=== PATIENT | male | born 1965 | race Caucasian/White ===

== ENCOUNTER → 2022-09-21 11:38 | Outpatient (CLI) | payer BC, SELFPAY ==
--- NOTE | 2022-09-21 11:40 | CA_ITS ---
APPROVED REPORT EXAM: Comprehensive 2D, Doppler, and color-flow Echocardiogram Senior Editor: Laxmi De La O CRT Ht: 6 ft 0 in Wt: 233lbs BSA: 2.27 BP: 132/96 mmHg Indications: Chest Pain, gerd, family hx, gerd 2D Dimensions LVOT 1.98 cm (M/F) 1.5-2.5 LA Volume 46.10 mL LA Volume Index 19.80 mL/m2 (M/F) 16-34 M-Mode Dimensions RVDd 3.24 cm (0.9-2.6) LA Diam 4.32 cm (1.9-4.0) LVDd 5.27 cm (3.5-5.7) Ao Diam 4.01 cm (2.0-3.7) LVDs 3.48 cm (3.5-5.7) IVSd 1.54 cm (0.6-1.1) PWd 0.91 cm (0.6-1.1) EF (Teich) 62.40% FS 34.00% EDV (Teich) 133.60 mL TAPSE 2.26 (<1.7) ESV (Teich) 50.20 mL LV Diastology E Decel Time 270.00 (160-240 msec) E/A Ratio 0.90 MED E' 7.30 (< 7 cm/sec) MED A' 15.20 cm/s E'/MED E' Ratio 9.22 (>14) LAT E' 7.40 (<10 cm/sec) LAT A' 12.80 cm/s E/LAT E' Ratio 9.09 (>14) Aortic Valve AO Peak GR. 10.70 mmHg Mitral Valve MV A Velocity 75.00 (40-130 cm/s) E/A Ratio 0.90 MV Decel. Time 270.00 (160-240 ms) Pulmonary Valve PV Peak Velocity 195.00 (50-150 cm/s) Tricuspid Valve TR P. Velocity 201.00 cm/s Left Ventricle Left atrium is mildly enlarged, left ventricle is normal size mild concentric left ventricular hypertrophy, estimated ejection fraction 55% with no regional wall motion abnormality, grade 1 diastolic dysfunction seen without tissue Doppler evidence of raise left atrial pressure. Right Ventricle Right atrium and right ventricle are normal size and contractility. Aortic Valve Aortic valve is minimally thickened and fibrosed there is no aortic stenosis or aortic insufficiency. Mitral Valve Mitral valve is grossly normal, there is trace mitral regurgitation. Tricuspid Valve Tricuspid valve grossly normal, there is trace tricuspid regurgitation, tricuspid regurgitation jet velocity is inadequate for calculation of the right ventricular systolic pressure. Pulmonic Valve Pulmonic valve is poorly visualized. Great Vessels Aortic root is normal size. Inferior vena cava is poorly visualized. Pericardium No significant pericardial effusion noted. Conclusion 1. Mildly enlarged left atrium, normal left ventricular size, mild concentric left ventricular hypertrophy, estimated ejection fraction 55% with no regional wall motion abnormality, grade 1 diastolic dysfunction seen without tissue Doppler evidence of raise left atrial pressure. 2. Trace mitral and tricuspid regurgitation. 3. No significant pericardial effusion. 4. Inferior vena cava is poorly visualized. Electronically signed by : Suresh Maza MD 09/22/2022 12:48:35
--- NOTE | 2022-09-21 11:43 | XR_ITS ---
FINAL REPORT CLINICAL HISTORY: chest pain x 2 weeks FINDINGS: Two views of the chest were obtained. The heart size and pulmonary vascularity are within normal limits. The mediastinum is normal. No acute pulmonary abnormality is identified. There is no pneumothorax. The bony thorax is intact. IMPRESSION: No active cardiopulmonary disease. Reviewed, Interpreted and Dictated by Reilly Garrett III, MD Transcribed by Tita Mraley Authenticated and [facility]
[2022-09-21 12:02] LABS: Microscopic, Urine URINE MICROSCOPIC (MICROSCOPIC)
[2022-09-21 12:37] LABS: Basophils # 0.1 K/mm3 (0-0.2); Basophils % 1.3 % (0.1-2.0); Eosinophils # 0.2 K/mm3 (0.0-0.4); Eosinophils % 3.5 % (0.1-12.0); Hematocrit 49.3 % (42.0-52.0); Hemoglobin 15.6 g/dL (14.1-18.0); Lymphocytes # 2.3 K/mm3 (0.7-4.5); Lymphocytes % 39.5 % (10-50); Mean Corpuscular HGB Conc 31.7 g/dL (31.8-35.4); Mean Corpuscular Hemoglobin 28.7 pg (27.0-31.2); Mean Corpuscular Volume 90.4 fl (80-94); Mean Platelet Volume 10.3 fl (7.4-10.4); Monocytes # 0.5 K/mm3 (0.1-1.0); Monocytes % 7.8 % (1.7-9.3); Neutrophils # 2.8 K/mm3 (1.8-7.8); Platelet Count 176 K/mm3 (142-424); Red Blood Count 5.45 M/mm3 (4.60-6.20); Red Cell Distribution Width 14.8 % (11.5-17.5); White Blood Count 5.8 K/mm3 (4.8-10.8)
[2022-09-21 12:49] LABS: Appearance,Urine CLEAR (Clear); Bilirubin,Urine Negative (Negative); Blood, Urine Negative (Negative); Color,Urine YELLOW (Yellow); Glucose,Urine (UA) Negative (Negative); Ketones,Urine Negative (Negative); Leukocyte Esterase,Urine Negative (Negative); Nitrate,Urine Negative (Negative); Protein,Urine Negative (Negative); Urobilinogen,Urine 0.2 EU/dl (0.2)
[2022-09-21 13:08] LABS: Alanine Aminotransferase 87 U/L (12-78); Albumin Level 4.5 g/dl (3.5-5.0); Alkaline Phosphatase 73 U/L (38-126); Anion Gap 11.1 mEq/L (5-15); Aspartate Amino Transferase 69 U/L (17-59); Bilirubin,Direct 0.2 mg/dl (0.0-0.4); Bilirubin,Indirect 0.8 mg/dL (0.0-0.9); Bilirubin,Unconjugated 0.8 mg/dL (0.0-1.1); Blood Urea Nitrogen 13 mg/dl (9-20); Calcium 8.8 mg/dl (8.4-10.2); Carbon Dioxide 27 mmol/L (22.0-30.0); Chloride 105 mmol/L (98-107); Chol/HDL Ratio 6.4 (1-3.5); Cholesterol 281 mg/dl (140-200); Estimated Glomerular Filt Rate 87 ml/min (>60); GFR (African American) 105 ML/MIN (>60); Glucose 116 mg/dl (74-100); HDL Cholesterol 44 mg/dl (40-60); Potassium 4.1 mmoL/L (3.5-5.1); Sodium 139 mmol/L (136-145); Total Protein,Serum 7.4 g/dl (6.3-8.2); Triglycerides 118 mg/dl (30-150); VLDL Cholesterol 24 mg/dL (0-40)
[2022-09-21 13:11] LABS: Bacteria,Urine Trace /lpf; Squamous Epithelial Cell,Urine Occasional #/hpf (0-5)
[2022-09-21 13:19] LABS: Direct LDL Cholesterol 203.19 mg/dL (100-129)
[2022-09-21 13:25] LABS: Free T4 (Free Thyroxine) 1.03 ng/dl (0.78-2.19)
[2022-09-21 13:27] LABS: 25-OH Vitamin D, Total 19.5 ng/mL (30-100)
[2022-09-21 13:38] LABS: Prostate Specific Ag Screen 3.1 ng/ml (0.0-4.0); Thyroid Stimulating Hormone 0.78 uIU/mL (0.465-4.68)
== END ==
PROVIDERS: PCP Physician Assistant; Visit Provider Internal Medicine
DX: R07.89 Other chest pain (principal); R49.9 Unspecified voice and resonance disorder; K21.9 Gastro-esophageal reflux disease without esophagitis; Z82.49 Family history of ischemic heart disease and other diseases of the circulatory system; R06.00 Dyspnea, unspecified; I11.9 Hypertensive heart disease without heart failure; I63.9 Cerebral infarction, unspecified; E11.9 Type 2 diabetes mellitus without complications; Z12.5 Encounter for screening for malignant neoplasm of prostate
CPT/HCPCS: 36415; 71046; 80048; 80061; 80076; 81001; 82306; 84439; 84443; 85025; 93306; G0103

== ENCOUNTER → 2022-09-29 11:31 | Outpatient (CLI) | payer BC, SELFPAY ==
--- NOTE | 2022-09-29 11:31 | NM_ITS ---
APPROVED REPORT Exam: Nuclear Stress Test Indication: HTN, FM HX, C.P., PALPITATIONS Patient Location: Outpatient Stress Tech: Azra Wise [place] Tech:OCTAVIANO aLtif RT (R)(N)(M) Ht: 6 ft 0 in Wt: 230 lbs Bra Size: 1.35 HR: 54 bpm BP: 141/78 mmHg BSA: 2.26 m2 TID: 1.35 History: HTN, FM HX, C.P., PALPITATIONS Procedure: Patient exercised on Floyd protocol 11:30 minutes and sec, resting heart rate 54 bpm, resting blood pressure 141/78 mmHg, with exercise maximum heart rate achived was 124 bpm which is 76 % of the maximum predicted heart rate and blood pressure was 182/88 mmHg. Test was stopped due to SOA, FATIGUE. Patient has good exercise capacity, achieved 12.8 METs of workload on treadmill, the blood pressure response to exercise was Adequate. Electrocardiogram Resting electrocardiogram shows sinus rhythm, with exercise there is less than 1.[address] segment depression noted from the baseline EKG. The EKG portion of the exercise Myoview was nondiagnostic as if she did not achieve the target heart rate. Cardiac Stress and Resting SPECT Images: Cardiac Stress and Resting SPECT images were obtained using technetium 99m Myoview 31.6 mCi stress and 10.64 mCi at rest. Gated SPECT analysis of segmental wall motion and calculation of the ejection fraction also done. Prone images were also obtained. Cardiac stress and resting SPECT images show uniform myocardial activity without segmental perfusion abnormality, computer derived ejection fraction 47% with no regional wall motion abnormality, right ventricle is normal size and contractility. Conclusion: 1. The EKG portion of the exercise Myoview was nondiagnostic as patient did not achieve the target heart rate, patient has good exercise capacity achieved 12.8 METs of workload on treadmill, the blood pressure response to exercise was adequate, patient complained of chest discomfort with exercise relieved with rest. 2. No scintigraphic evidence of reversible ischemia seen, computer derived ejection fraction 47% with no regional wall motion abnormality, right ventricle is normal size and contractility. 3. Equivocal myocardial perfusion imaging. Electronically signed by : Suresh Maza MD 10/01/2022 12:04:29
--- NOTE | 2022-09-29 14:26 | CA_ITS ---
APPROVED REPORT Exam: Exercise Treadmill Technologist: Azra Wise Ht: 6 ft 0 in Wt: 233 lbs BSA: 2.27 m2 HR: 54 bpm BP: 141/78 mmHg Indications: Chest pain Medical History Medications: Omeprazole,,,,, Asa,,,,, BisOPROLOL,,,,, OmeGA3,,,,, Stress Test Details Test: Floyd HR Resting HR: 59 bpm Max Heart Rate (APMHR): 163.429926 bpm Max HR Achieved: 124 bpm Target HR (85% APMHR): 138.866349 bpm % of APMHR: 76.07 Recovery HR: 83 bpm BP Resting BP: 141.0/78.0 mmHg Max BP: 184.0/82.0 mmHg Recovery BP: 134.0/89.0 mmHg ECG Resting ECG: Sinus bradycardia, short [place] interval Clinical Exercise duration: 11:30 min Highest Stage Achieved: Exercise capacity: 12.8 METs Stress ECG Conclusion Patient exercised 11:30 into stage 4 Floyd Protocol. Test stopped due to shortness of air, fatigue. Symptoms: Burning discomfort in mid chest and left axilla. Arrhythmias/Ectopy: None ST-T Changes: 0.5 - 1 mm of horizontal and slightly upsloping ST depression laterally and 0.5 mm inferiorly. Conclusion: Abnormal GXT with chest pain and equivocal EKG changes. Blunted heart rate response on Bisoprolol. Myoview images reported separately. Test Summary REST . . . . . . . Sitting REST . . . . . . . Standing REST 02:53 0.0 0.0 59 . 141/ 78 . . Stage 1 01:00 10.0 1.7 80 . . . . Stage 1 02:00 10.0 1.7 85 . . . . Stage 1 03:00 10.0 1.7 84 . 138/ 76 . . Stage 2 01:00 12.0 2.5 90 . . . . Stage 2 02:00 12.0 2.5 95 . . . . Stage 2 03:00 12.0 2.5 94 . 144/ 72 . . Stage 3 01:00 14.0 3.4 100 . . . . Stage 3 02:00 14.0 3.4 105 . 166/ 78 . . Stage 3 03:00 14.0 3.4 108 . 156/ 78 . . Stage 4 01:00 16.0 4.2 118 . . . . Stage 4 . . . . . . . Myoview Injected Stage 4 02:00 16.0 4.2 121 . . . . Stage 4 . . . . . . . Chest pain Stage 4 02:30 16.0 4.2 124 . . . Stop exercise at 11:30 RECOVERY 01:00 0.0 0.0 101 . . . . RECOVERY 02:00 0.0 0.0 87 . 182/ 88 . . RECOVERY 03:00 0.0 0.0 84 . 182/ 88 . . RECOVERY 04:00 0.0 0.0 80 . 184/ 82 . . RECOVERY 05:00 0.0 0.0 82 . 184/ 82 . . RECOVERY 06:00 0.0 0.0 79 . 184/ 82 . . RECOVERY 06:46 0.0 0.0 79 . 134/ 89 . . Electronically signed by : Suresh Maza MD 09/30/2022 06:52:47
== END ==
PROVIDERS: PCP Physician Assistant; Visit Provider Internal Medicine
DX: R07.89 Other chest pain (principal); K21.9 Gastro-esophageal reflux disease without esophagitis; R49.9 Unspecified voice and resonance disorder; Z82.49 Family history of ischemic heart disease and other diseases of the circulatory system
CPT/HCPCS: 78452; 93017; A9502

== ENCOUNTER → 2022-11-29 08:52 | Outpatient (CLI) | payer BC, SELFPAY ==
[2022-11-29 09:56] LABS: Alanine Aminotransferase 71 U/L (12-78); Albumin Level 4.5 g/dl (3.5-5.0); Alkaline Phosphatase 68 U/L (38-126); Aspartate Amino Transferase 81 U/L (17-59); Bilirubin,Direct 0.3 mg/dl (0.0-0.4); Bilirubin,Indirect 0.6 mg/dL (0.0-0.9); Bilirubin,Total 0.9 mg/dl (0.2-1.3); Bilirubin,Unconjugated 0.6 mg/dL (0.0-1.1); Chol/HDL Ratio 5.5 (1-3.5); Cholesterol 225 mg/dl (140-200); HDL Cholesterol 41 mg/dl (40-60); Total Protein,Serum 7.4 g/dl (6.3-8.2); Triglycerides 157 mg/dl (30-150); VLDL Cholesterol 31 mg/dL (0-40)
[2022-11-29 10:08] LABS: Direct LDL Cholesterol 149.67 mg/dL (100-129)
== END ==
PROVIDERS: PCP Physician Assistant; Visit Provider Internal Medicine
DX: R07.89 Other chest pain (principal); E78.5 Hyperlipidemia, unspecified; K21.9 Gastro-esophageal reflux disease without esophagitis; R49.9 Unspecified voice and resonance disorder; Z82.49 Family history of ischemic heart disease and other diseases of the circulatory system
CPT/HCPCS: 36415; 80061; 80076

== ENCOUNTER 2022-12-08 09:03 | Outpatient (CLI) | payer BC, SELFPAY ==
[2022-12-08 09:21] VITALS: BMI 31.8
[2022-12-08 09:31] VITALS: BP 135/77; PULSE 62; RESP 18; TEMP 36.7; O2SAT 94
[2022-12-08 10:06] LABS: Alanine Aminotransferase 78 U/L (12-78); Albumin Level 4.6 g/dl (3.5-5.0); Albumin/Globulin Ratio 1.6 (1.1-1.8); Alkaline Phosphatase 73 U/L (38-126); Anion Gap 13.6 mEq/L (5-15); Aspartate Amino Transferase 72 U/L (17-59); Bilirubin,Total 0.7 mg/dl (0.2-1.3); Blood Urea Nitrogen 13 mg/dl (9-20); Calcium 8.9 mg/dl (8.4-10.2); Carbon Dioxide 25 mmol/L (22.0-30.0); Chloride 102 mmol/L (98-107); Creatinine Clearance Estimated 154 mL/min (50-200); Estimated Glomerular Filt Rate 100 ml/min (>60); GFR (African American) 121 ML/MIN (>60); Globulin 2.8 g/dL (1.3-3.2); Glucose 156 mg/dl (74-100); Potassium 4.6 mmoL/L (3.5-5.1); Sodium 136 mmol/L (136-145); Total Protein,Serum 7.4 g/dl (6.3-8.2)
[2022-12-08 10:12] VITALS: BP 139/88; PULSE 59; RESP 18
[2022-12-08 10:16] VITALS: BP 140/95; PULSE 57; RESP 18
--- NOTE | 2022-12-08 10:16 | PC.NURSE ---
Pt to CT via W/C
[2022-12-08 10:23] VITALS: BP 126/73; PULSE 57; RESP 18
--- NOTE | 2022-12-08 10:23 | PC.NURSE ---
Procedure started, pt stable, no C/O.
[2022-12-08 10:26] VITALS: BP 128/78; PULSE 64; RESP 18
--- NOTE | 2022-12-08 10:26 | PC.NURSE ---
scan complete, pt sitting up and preparing to go.
== END 2022-12-08 10:40 ==
LOC: RAD 09:04
PROVIDERS: PCP Physician Assistant; Visit Provider Internal Medicine
DX: R06.00 Dyspnea, unspecified (principal); E78.5 Hyperlipidemia, unspecified; K21.9 Gastro-esophageal reflux disease without esophagitis; Z82.49 Family history of ischemic heart disease and other diseases of the circulatory system
CPT/HCPCS: 75574; 80053; Q9967

== ENCOUNTER 2023-10-12 10:03 | Day surgery (SDC) | payer BC, SELFPAY ==
[2023-10-10 13:28] VITALS: BMI 31.4
[2023-10-12] MEDS: LACTATED RINGERS 1000ML 1,000 ML 25 ML IV (10:18)
[2023-10-12 10:19] VITALS: BP 138/76; PULSE 56; RESP 18; O2SAT 97
--- NOTE | 2023-10-12 10:38 | P.PNANES_ITS ---
[facility] Disclaimer: The information contained in this section may have been updated after the patient was seen, as this information can be updated by other users. 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 Surgical History History of surgery on arm left Family History Mother Cancer Heart attack Hypertension Stroke Father Diabetes Heart attack Hypertension Brother Diabetes Heart attack Hypertension Social History Smoking Status: Former smoker smoking status stop date: 08/17/2015 alcohol intake: never substance use type: denies use current occupational status: employed and retired Travel in the last 8 weeks: None [facility] Anesthesia Checklist Patient Identification Patient Identification: Arm Band Structural Data Admitted From: Home Planned Operative Procedure/s: EGD/Colonoscopy Consent for Planned Operative Procedure(s) Verified: Yes Verified Documents: Surgical Consent and History and Physical NPO Status Verified Time NPO: 00:00 Additional verifications Anesthesia Reactions: No Hx Blood Transfusions: No Blood Transfusion Reaction: No Airway Assessment Mallampati Score:: Class II C-Spine Mobility Assessed: Yes TMJ Mobility Assessed: Yes Dentition: Edentulous Neurological Assessment Level of Consciousness: Awake and Alert Anesthesia Plan Anesthesia Risk discussed: Yes Anesthesia Plan: Verified ASA Class: II Anesthesia Type: MAC
[2023-10-12 11:12] VITALS: O2SAT 97
[2023-10-12 11:47] VITALS: BP 116/76; PULSE 64; RESP 18; TEMP 36.2; O2SAT 91
--- NOTE | 2023-10-12 11:48 | HMH.SCOPE ---
Procedure: Date: 10/12/23 Patient Date of :: 1965 Procedure Performed:: Colonoscopy Indications:: The patient is a 58-year-old who presents for high risk colon cancer screening. There is a family history of colorectal cancer in a first-degree relative age less than 60. Performing Provider:: Pradip Garcia MD Referring Provider:: Pk Suazo PA-C Sedation:: See RN records Procedure:: After placing the patient in the left lateral decubitus position, the colonoscopy was gently inserted into the rectum and under direct visualization advanced to the cecum which was identified by transillumination in the right lower quadrant, identification of the ileocecal valve, appendiceal orifice, and cecal strap. Color, texture, mucosa, and anatomy of the colon were carefully examined with the scope. Findings:: The quality of the bowel preparation in the cecum and ascending colon was fair. Time was spent irrigating and cleansing mucosa for improved evaluation. Remaining colon was a good preparation. There was a diminutive polyp on the distal side of the ileocecal valve. The polyp was removed with cold forceps. The remaining colon appeared normal. On retroflexion view there were internal hemorrhoids seen. Recommendations:: Await pathology results Repeat colonoscopy in 5 years Complications:: None Estimated blood obtained (mL): 0 Colonoscopy Component Colonoscopy Component Was a colonoscopy performed during today's procedure?: Yes Recommended follow up colonoscopy of at least 10 years?: Yes
--- NOTE | 2023-10-12 11:51 | HMH.SCOPE ---
Procedure: Date: 10/12/23 Patient Date of :: 1965 Procedure Performed:: EGD Indications:: The patient is a 58-year-old who presents for EGD evaluation of chronic heartburn and dysphagia symptoms. The patient has a history of vocal cord polyps removed many years ago. The patient has had a recent ENT evaluation that did not show vocal cord polyps. Performing Provider:: Pradip Garcia MD Referring Provider:: Denise Trejo APRN Sedation:: See RN notes Procedure:: The gastroscope was gently passed through the incisoral orifice into the oral cavity and under direct visualization the esophagus was intubated. The endoscope was passed down the esophagus, through the stomach, and into the duodenum. Color, texture, mucosa, and anatomy of the esophagus, stomach, and duodenum were carefully examined with the scope. Findings:: The Z-line was irregular and measured at 40 cm. Above the Z-line there was a small island of salmon-colored mucosa. Biopsies were obtained. There was a small hiatal hernia measuring approximately 1.5 to 2 cm in size. There was gastritis in the antrum and the body characterized by erythema. Biopsies were obtained for histology with a cold forceps. The examined duodenum appeared normal. The gastroscope scope was withdrawn and empiric esophageal dilatation was performed with a [place] dilator 56 Fr. Recommendations:: Await pathology results Continue omeprazole as Complications:: None Estimated blood obtained (mL): 0 Colonoscopy Component Colonoscopy Component Was a colonoscopy performed during today's procedure?: No
[2023-10-12 11:56] VITALS: BP 110/73; PULSE 58; RESP 18; O2SAT 92
[2023-10-12 12:07] VITALS: BP 116/63; PULSE 59; RESP 16; O2SAT 93
[2023-10-12 12:17] VITALS: BP 129/76; PULSE 60; RESP 18; O2SAT 97
== END 2023-10-12 12:20 | disposition home or self-care (01) ==
PROVIDERS: PCP Physician Assistant; Visit Provider Internal Medicine
PROC: 0DJ08ZZ Inspection of Upper Intestinal Tract, Via Natural or Artificial Opening Endoscopic (ICD-10-PCS; CPT 43235; principal; 2023-10-12 11:30)
DX: Z12.11 Encounter for screening for malignant neoplasm of colon (principal); Z80.0 Family history of malignant neoplasm of digestive organs; K64.8 Other hemorrhoids; R13.10 Dysphagia, unspecified; K21.9 Gastro-esophageal reflux disease without esophagitis; K44.9 Diaphragmatic hernia without obstruction or gangrene; K29.50 Unspecified chronic gastritis without bleeding; D12.0 Benign neoplasm of cecum
CPT/HCPCS: 45380; 43239; 43248

== ENCOUNTER 2023-12-28 08:52 | Outpatient (CLI) | payer BC, SELFPAY ==
[2023-12-28 10:20] LABS: Alanine Aminotransferase 35 U/L (12-78); Aspartate Amino Transferase 35 U/L (17-59); Bilirubin,Unconjugated 0.5 mg/dL (0.0-1.1)
[2023-12-28 10:21] LABS: Alkaline Phosphatase 52 U/L (38-126); Bilirubin,Direct 0.3 mg/dl (0.0-0.4); Bilirubin,Indirect 0.5 mg/dL (0.0-0.9); Bilirubin,Total 0.8 mg/dl (0.2-1.3); Chol/HDL Ratio 3.9 (1-3.5); Cholesterol 173 mg/dl (140-200); HDL Cholesterol 44 mg/dl (40-60); Total Protein,Serum 6.7 g/dl (6.3-8.2); Triglycerides 120 mg/dl (30-150); VLDL Cholesterol 24 mg/dL (0-40)
[2023-12-28 10:32] LABS: Direct LDL Cholesterol 96.37 mg/dL (100-129)
== END 2023-12-28 23:59 | disposition home or self-care (01) ==
PROVIDERS: PCP Physician Assistant; Visit Provider Internal Medicine
DX: R79.89 Other specified abnormal findings of blood chemistry (principal); E78.5 Hyperlipidemia, unspecified
CPT/HCPCS: 36415; 80061; 80076